=== PATIENT | female | born 1975 | race African-American/Black ===

== ENCOUNTER 2021-07-18 22:01 | Emergency (ER) | payer SELFPAY ==
[~2021-07-18] VITALS: Ht 162.6 cm; Wt 110.0 kg
[2021-07-18 23:44] LABS: CALCIUM 9.4 mg/dL (8.5-10.1); CREATININE 0.7 mg/dL (0.6-1.0); GFR 90.1; POTASSIUM 4.3 mmol/L (3.5-5.1)
[2021-07-18 23:50] LABS: ALBUMIN 3.6 g/dL (3.4-5.0); ALBUMIN/GLOBULIN RATIO 0.9 (1.0-1.7); TOTAL BILIRUBIN 0.3 mg/dL (0.2-1.0); TOTAL PROTEIN 7.8 g/dL (6.4-8.2)
--- NOTE | 2021-07-18 23:58 | RAD ---
XR CHEST 2V Technique: PA and lateral views of the chest were obtained. Clinical History: Reason: dyspnea / Spl. Instructions: / History: Comparison: None. Findings: The heart and pulmonary vasculature appear within normal limits. The lungs are clear. The pleural ma rgins are clear. Impression: No acute chest process is seen. Electronically signed by: Denton Milian III, MD (07/18/2021 11:56 PM) [facility]
[2021-07-19 00:09] LABS: INFLUENZA A PATIENT NEGATIVE (NEGATIVE); INFLUENZA B PATIENT NEGATIVE (NEGATIVE)
--- NOTE | 2021-07-19 00:28 | PHYS DOC ---
Past History Past Medical History: Hypertension General Adult EDM: Chief Complaint: DYSPNEA/RESPIRATOY DISTRESS HPI: HPI: " I feel like I got the flu.. Achy all over,, fever feeling ..more wheezing and coughing.." Patient is a 45 year old female who presents with above hx and complaints myalgia, arthralgia, malaise, wheezing with nonproductive cough, fever, and myalgia. Patient has not received flu vaccination. Patient not receive Covid vaccination. No recent travel. No specific ill contacts. His only become ill in the last 24 hours. Does have a history of obesity and hypertension. Patient does not have any specific exposures to Covid. Patient not currently following with primary care. Review of Systems: Review of Systems: Constitutional: Complains of fever or chills Eyes: Denies change in visual acuity HENT: Complains of nasal congestion Respiratory: Complains of cough and wheezing Cardiovascular: Denies chest pain or edema GI: Denies abdominal pain, nausea, vomiting, bloody stools or diarrhea : Denies dysuria Musculoskeletal: Complains of myalgia and arthralgia Integument: Denies rash Neurologic: Denies headache, focal weakness or sensory changes Endocrine: Denies polyuria or polydipsia Lymphatic: Denies swollen glands Psychiatric: Denies depression or anxiety Family History: Family History: Noncontributory to presentation Current Medications: Current Meds: See nursing for home meds Allergies: Allergies: Allergies Coded Allergies Type Severity Reaction Last Updated Verified No Known Drug Allergies 07/18/21 No Physical Exam: PE: Constitutional: Moderate acute distress, non-toxic appearance. [] HENT: Normocephalic, atraumatic, bilateral external ears normal, oropharynx moist, postnasal drainage, no oral exudates, nose swollen turbinates clear rhinorrhea Eyes: PERRLA, EOMI, conjunctiva injected, no discharge. [] Neck: Normal range of motion, no tenderness, supple, no stridor. Full thyroid Cardiovascular:Heart rate regular rhythm, no murmur [] Lungs & Thorax: Bilateral breath sounds to apex few scattered wheezes auscultation [] Abdomen: Bowel sounds normal, soft, no tenderness, no masses, no pulsatile masses. Morbidly obese. Skin: Warm, dry, no erythema, no rash. [] Back: No tenderness, no CVA tenderness. [] Extremities: No tenderness, no cyanosis, no clubbing, ROM intact, ankle edema. No cording appreciated Neurologic: Alert and oriented X 3, moves all extremities on request, does have distal sensory,, no focal deficits noted. [] Psychologic: Affect anxious, judgement normal, mood normal. [] Current Patient Data: Labs: Laboratory Tests Test 07/18/21 22:45 07/18/21 22:59 Sodium Level 140 mmol/L (136-145) Potassium Level 4.3 mmol/L (3.5-5.1) Chloride Level 106 mmol/L (98-107) Carbon Dioxide Level 22 mmol/L (21-32) Anion Gap 12 (6-14) Blood Urea Nitrogen 9 mg/dL (7-20) Creatinine 0.7 mg/dL (0.6-1.0) Estimated GFR (Cockcroft-Gault) 90.1 BUN/Creatinine Ratio 13 (6-20) Glucose Level 99 mg/dL (70-99) Calcium Level 9.4 mg/dL (8.5-10.1) Total Bilirubin 0.3 mg/dL (0.2-1.0) Aspartate Amino Transferase (AST) 24 U/L (15-37) Alanine Aminotransferase (ALT) 22 U/L (14-59) Alkaline Phosphatase 122 U/L (46-116) H Total Protein 7.8 g/dL (6.4-8.2) Albumin 3.6 g/dL (3.4-5.0) Albumin/Globulin Ratio 0.9 (1.0-1.7) L Influenza Type A (Rapid) Negative (NEGATIVE) Influenza Type B (Rapid) Negative (NEGATIVE) SARS-CoV-2 Antigen (Rapid) Negative (NEGATIVE) EKG: EKG: My interpretation EKG shows a sinus rhythm at 83 bpm. No findings of acute STEMI or acute morphology. Time of EKG is 2225 hrs. [] Radiology/Procedures: Radiology/Procedures: [][address] [address] IMAGING REPORT Signed PATIENT: LEISA TORRES ACCOUNT: [id number] : 1975 LOCATION: ER AGE: 45 SEX: F EXAM STATUS: PRE ER ORD. PHYSICIAN: PRACHI BYRNE MD REASON: dyspnea PROCEDURE: CHEST PA & LATERAL XR CHEST 2V Technique: PA and lateral views of the chest were obtained. Clinical History: Reason: dyspnea / Spl. Instructions: / History: Comparison: None. Findings: The heart and pulmonary vasculature appear within normal limits. The lungs are clear. The pleural margins are clear. Impression: No acute chest process is seen. Electronically signed by: Denton Nicole III, MD (07/18/2021 11:56 PM) [facility] DICTATED AND SIGNED BY: DENTON NICOLE III, MD DATE: 07/18/21 3553 CC: PRACHI BYRNE MD ~MTH0 0 Heart Score: C/O Chest Pain: N/A HEART Score for Chest Pain: HEART Score for Chest Pain Response (Comments) Value History Slighlty/Non-Suspicious 0 ECG Normal 0 Age >45 - < 65 1 Risk Factors 1 or 2 Risk Factors 1 Troponin < Normal Limit 0 Total 2 Risk Factors: Risk Factors: DM, Current or recent (<one month) smoker, HTN, HLP, family history of CAD, obesity. Risk Scores: Score 0 - 3: 2.5% MACE over next 6 weeks - Discharge Home Score 4 - 6: 20.3% MACE over next 6 weeks - Admit for Clinical Observation Score 7 - 10: 72.7% MACE over next 6 weeks - Early Invasive Strategies Course & Med Decision Making: Course & Med Decision Making Pertinent Labs and Imaging studies reviewed. (See chart for details) Patient push fluids. Take Tylenol and ibuprofen for discomfort. Use MDI 2 puffs 4 times a day. Patient to practice self-isolation. In spite of the negative flu and COVID will treat as if she has a viral infection. Follow-up primary care. Consider repeat testing after 3 days. Wear clonidine patch until follow-up with primary care and review her elevated blood pressure. Impression: 1. Viral syndrome 2. Hypertension [] Dragon Disclaimer: Dragon Disclaimer: This electronic medical record was generated, in whole or in part, using a voice recognition dictation system. Dragon Disclaimer This chart was dictated in whole or in part using Voice Recognition software in a busy, high-work load, and often noisy Emergency Department environment. It may contain unintended and wholly unrecognized errors or omissions. PRACHI BYRNE MD Jul 19, 2021 00:28
[2021-07-19 01:36] LABS: BASO % 0 % (0-3); EOS # 0.2 x10^3/uL (0.0-0.7); EOS % 4 % (0-3); HEMATOCRIT 36.3 % (36.0-47.0); HEMOGLOBIN 11.9 g/dL (12.0-15.5); LYMPH # 1.1 x10^3/uL (1.0-4.8); LYMPH % 21 % (24-48); MEAN CORPUSCULAR HEMOGLOBIN 28 pg (25-35); MEAN CORPUSCULAR HGB CONC 33 g/dL (31-37); MEAN CORPUSCULAR VOLUME 85 fL (79-100); MONO # 0.4 x10^3/uL (0.0-1.1); MONO % 8 % (0-9); NEUT # 3.3 x10^3uL (1.8-7.7); NEUT % 67 % (31-73); PLATELET COUNT 269 x10^3/uL (140-400); RED BLOOD COUNT 4.29 x10^6/uL (3.50-5.40); RED CELL DISTRIBUTION WIDTH 14.1 % (11.5-14.5)
[2021-07-19] MEDS ORDERED: diphenhydrAMINE HCL 25 MG CAPSULE PO ONE (03:00)
[2021-07-19] MEDS ORDERED: oxyCODONE/APAP 5/325 1 TAB TABLET PO ONE (03:00)
[2021-07-19] MEDS ORDERED: ALBUTEROL SULFATE 8GM INHALER. INH ONE (03:00)
[2021-07-19] MEDS ORDERED: cloNIDine TTS-2 1 PATCH PATCH TD ONE (03:30)
[2021-07-19] MEDS ORDERED: cloNIDine HCL 0.1 MG TABLET PO ONE (03:30)
[2021-07-19 03:40] VITALS: BP 153/107
[2021-07-19 03:52] LABS: BACTERIA,URINE FEW /HPF (0-FEW); BILIRUBIN,URINE NEG (NEG); CLARITY,URINE CLEAR; COLOR,URINE YELLOW; GLUCOSE,URINE NEG (NEG); NITRITE,URINE NEG (NEG); RBC,URINE 0 /HPF (0-2); SQUAMOUS EPITHELIAL CELL,UR MOD /LPF; UROBILINOGEN,URINE 0.2 mg/dL (0.2 mg/dL)
--- NOTE | 2021-07-19 04:06 | EKG ---
[address] [address] Test Date: 2021-07-18 Test Time: 22:25:44 Pat Name: LEISA TORRES Department: Room: Gender: F Genetic Counsellor: : 1975 Requested By: PRACHI BYRNE Order Number: [id number] Reading MD: Cooper Sandoval Measurements Intervals [place] Rate: 83 P: 55 AK: 172 QRS: 42 QRSD: 78 T: 41 QT: 378 QTc: 450 Interpretive Statements SINUS RHYTHM NORMAL ECG RI6.02 No previous ECG available for comparison Electronically Signed On 07-20-2021 7:19:06 [facility] [employer] by Cooper Sandoval
== END 2021-07-19 03:45 | disposition home or self-care (01) ==
LOC: ER 22:01
DX: B34.9 Viral infection, unspecified (principal); I10 Essential (primary) hypertension; Z20.822 Contact with and (suspected) exposure to COVID-19
CPT/HCPCS: 71046; 80053; 81001; 85025; 87426; 87804; 93005; 94640; 99285; C9803; Q0163; U0003; 94664